=== PATIENT | female | born 1965 | race Caucasian/White ===

== ENCOUNTER → 2022-12-04 16:26 | Outpatient (CLI) | payer BC, SELFPAY ==
--- NOTE | ~2022-12-04 | MM_ITS ---
EXAMINATION: MM screening alysha BI w xu HISTORY: Screening mammogram TECHNIQUE: Craniocaudal and mediolateral oblique 3-D tomosynthesis images were obtained and synthetic 2-D images were generated. CAD analysis was submitted and interpreted. COMPARISON: 10/01/2016 bilateral screening mammogram BREAST PARENCHYMAL COMPOSITION: The breasts are almost entirely fatty. FINDINGS: There is no evidence of suspicious mass, calcification, or architectural distortion to sugg est malignancy in either breast. There has been no suspicious interval change. IMPRESSION: 1. No mammographic evidence of malignancy. 2. Recommend routine screening mammography in one year. BI-RADS Category 1: Negative Reviewed, dictated and finalized at location A. [employer]
== END ==
PROVIDERS: PCP Physician Assistant; Visit Provider Nurse Practitioner
DX: Z12.31 Encounter for screening mammogram for malignant neoplasm of breast (principal)
CPT/HCPCS: 77063; 77067